=== PATIENT | female | born 1930 | race Caucasian/White ===

== ENCOUNTER → 2016-09-15 | Outpatient (CLI) | payer MEDICARE, OTHER ==
[2015-02-14 15:00] VITALS: BP 150/70
[~2016-09-15] MED LIST: ACET500T33 PO; ATOR20TA58 PO; CHOL100013 PO; ENOX40DI SQ; ESOM40CA PO; FERR-26 PO; FURO-68 PO; HYDR-2666 PO; HYDR25TA9 PO; LEVO50TA PO; LEVO75TA5 PO; LISI10TA2 PO; METO-269 PO; MULT1TAB52 PO; OXYC-323 PO; TRAM-29 PO; WARF1TAB PO; WARF2TAB PO; tylenol arthritis PO
[2016-09-15 14:20] LABS: BILIRUBIN,URINE NEGATIVE (NEG); GLUCOSE,URINE NEGATIVE (NEG); NITRITE,URINE NEGATIVE (NEG); PH,URINE 5.5; PROTEIN,URINE NEGATIVE (NEG-TRACE); UROBILINOGEN,URINE 0.2 mg/dL (0.2 mg/dL)
[2016-09-15 14:30] LABS: BACTERIA,URINE 0 /HPF (0-FEW); RBC,URINE 0 /HPF (0-2); SQUAMOUS EPITHELIAL CELL,UR FEW /LPF; WBC,URINE RARE /HPF (0-4)
[2016-09-15 14:41] LABS: BASO % 1 % (0-3); EOS % 1 % (0-3); HEMATOCRIT 37.8 % (36.0-47.0); HEMOGLOBIN 12.2 g/dL (12.0-15.5); LYMPH # 1.6 x10^3/uL (1.0-4.8); LYMPH % 26 % (24-48); MEAN CORPUSCULAR HEMOGLOBIN 31 pg (25-35); MEAN CORPUSCULAR HGB CONC 32 g/dL (31-37); MEAN CORPUSCULAR VOLUME 95 fL (79-100); MONO % 6 % (0-9); NEUT % 66 % (31-73); PLATELET COUNT 197 x10^3/uL (140-400); RED BLOOD COUNT 3.99 x10^6/uL (3.50-5.40); WHITE BLOOD COUNT 6.2 x10^3/uL (4.0-11.0)
[2016-09-15 14:51] LABS: ALBUMIN 4.1 g/dL (3.4-5.0); CALCIUM 11.3 mg/dL (8.5-10.1); CREATININE 1.2 mg/dL (0.6-1.0); GFR 42.8; POTASSIUM 3.6 mmol/L (3.5-5.1)
[2016-09-15 14:52] LABS: PROTHROMBIN TIME PATIENT 21.7 SEC (11.7-14.0)
--- NOTE | 2016-09-15 15:56 | RAD ---
Indication preop. Anticipated surgical removal of the patella. History of hypertension. PA and lateral views of the chest were obtained and are compared to an examination over 9 years ago. There are background changes compatible with emphysema. There is a bipolar cardiac pacing device. There is moderate enlargement of the cardiac silhouette. There is no congestive heart failure. A definite acute parenchymal infiltrate is not seen. There are occasional linear densities in the left midlung probably reflecting pleural-parenchymal scarring. Follow-up imaging, establishing stability, should be considered. IMPRESSION: Mild cardiomegaly. Linear densities in the left lung probably reflecting scar. Follow-up imaging, confirming stability, should be considered. No definite acute finding apparent in the chest
== END | disposition home or self-care (01) ==
LOC: SURGPAT 13:28
PROVIDERS: ATTEND Orthopaedic Surgery
DX: Z01.818 Encounter for other preprocedural examination (principal); I10 Essential (primary) hypertension
CPT/HCPCS: 36415; 71020; 80048; 81001; 82040; 85027; 85610; 85730; 87641

== ENCOUNTER 2016-09-21 06:03 | Inpatient (IN) | payer MEDICARE, OTHER ==
--- NOTE | 2016-09-20 11:26 | PDOC1 ---
History and Physical Date of Admission Date of Admission DATE: 09/21/16 Identification/Chief Complaint Chief Complaint right painful total knee Source Source: Chart review History of Present Illness History of Present Illness SIster Batool is an 86 year old female patient who had right total knee arthroplasty in January [address] Perez. She says her never has never been great since the surgery. She continues to have anterior knee pain and cannot walk as well as she would like. She states she has a lot of trouble getting up from the dinner table, due to pain, and has to have someone help her.She has tried bracing and physical therapy, without relief. X-rays show a loose patellar component. Past Medical History Cardiovascular: AFIB, HTN Past Surgical History Past Surgical History: Pacemaker, Total knee replacement (bilateral TKA), No pertinent history Family History Family History: No Significant Social History Smoke: No ALCOHOL: none Drugs: None Current Medications Current Medications Active Scripts Active Reported Levothyroxine Sodium 75 Mcg Tablet 1 Tab PO DAILY [tylenol arthritis] 1,300 Mg PO BID Coumadin (Warfarin Sodium) 1 Mg Tablet 2 Tab PO DAILY Multivitamins (Multivitamin) 1 Each Tablet 1 Tab PO DAILY Hydrochlorothiazide Tablet (Hydrochlorothiazide) 25 Mg Tablet 25 Mg PO DAILY Toprol Xl (Metoprolol Succinate) 50 Mg Tab.er.24h 50 Mg PO BID Lisinopril 10 Mg Tablet 1 Tab PO BID Vitamin D (Cholecalciferol (Vitamin D3)) 1,000 Unit Capsule 1,000 Unit PO DAILY07 Last dose given: 9:00 a.m. Next dose due: 05-24-14 9:00 a.m. Atorvastatin Calcium 20 Mg Tablet 20 Mg PO HS last dose given: 05-23-14 9:00 p.m. Next dose due: 05-24-14 9:00 p.m. Nexium Capsule (Esomeprazole Magnesium) 40 Mg Capsule.dr 40 Mg PO DAILY07 Last dose given: 7:30 a.m. Next dose due: 05-25-14 7:00 a.m. Allergies Allergies: Coded Allergies: tramadol (Verified Allergy, Severe, 02/11/15) hallucinations NSAIDS (Non-Steroidal Anti-Inflamma (Verified Adverse Reaction, Intermediate, GASTRIC IRRITATION, 02/11/15) Physical Exam General: Alert, Oriented X3, Cooperative, No acute distress HEENT: Atraumatic, EOMI Lungs: Normal air movement Heart: RRR Abdomen: Soft Extremities: No clubbing, No cyanosis, No edema, Normal pulses Skin: No rashes, No breakdown, No significant lesion Neuro: Normal speech, Sensation intact Psych/Mental Status: Mental status NL, Mood NL Vitals Vitals Vital Signs Date Time Temp Pulse Resp B/P Pulse Ox O2 Delivery O2 Flow Rate FiO2 09/15/16 14:48 97 75 18 98 97.0 Images Images Bone scan results reviewed. These show uptake in the patella of the right knee only. The femoral and tibial components of the right knee appears stable. VTE Prophylaxis Ordered VTE Prophylaxis Devices: Yes VTE Pharmacological Prophylaxi: Yes Assessment/Plan Assessment/Plan Painful total knee replacement. Dr. Perez and the patient discussed operative versus nonoperative management of her apparently loose patellar component and painful patellar bone. Dr. Perez recommended patellectomy. She got a second opinion which was the same. We talked a long time about the surgery, the expected time in the knee immobilizer which is typically six weeks, and the usual return to function which is often quite unexpectedly good. Dr. Perez explained that her strength would be affected slightly such as squatting, but her gait would probably improved from what it is currently, and would likely be less painful than it is now. We talked about the potential risks such as expected extensor lag, slight weakness, and possibilities of surgical complications such as scarring, blood clots, infection , or other potential surgical or anesthetic complications. She would like to proceed with right knee patellectomy. ANÍBAL GROSSMAN Sep 20, 2016 11:26
[2016-09-21] VITALS (8 sets, daily range): BP systolic 145–165; BP diastolic 75–99
[~2016-09-21] VITALS: Ht 167.6 cm; Wt 57.6 kg
[~2016-09-21 06:03] MED LIST changes: +ACETAMINOPHEN 500 MG TABLET PO PRN; +CEFAZOLIN 2GM PREMIX 50 ML IV PRN; +MORPHINE SULFATE 5 MG, ROPIVacaine 0.5% PF 60 ML, EPINEPHRINE 0.5 MG in IV NORMAL SALIN... INT ART ONE; +TRANEXAMIC ACID 1,000 MG in IV NORMAL SALINE 50ML 50 ML INJ ONE
[2016-09-21] MEDS ORDERED: BUPIVACAINE-EPI 0.25%-1:200000 50 ML VIAL. ONE (06:24)
[2016-09-21] MEDS ORDERED: LIDOCAINE 2% 100 MG/5 ML SYRINGE. ONE (06:45)
[2016-09-21] MEDS ORDERED: FENTANYL PF 100 MCG/2 ML VIAL. ONE (06:45)
[2016-09-21] MEDS ORDERED: PROPOFOL 0 ML IV ONE (06:45)
[2016-09-21] MEDS ORDERED: ONDA4TAB7 PO (06:55)
[2016-09-21] MEDS ORDERED: MORPHINE SULFATE 2 MG/ML DISP.SYRIN. IV PRN ×2 (07:00→11:30)
[2016-09-21] MEDS ORDERED: PROCHLORPERAZINE 10 MG/2 ML VIAL. IV PRN ×2 (07:00→11:30)
[2016-09-21] MEDS ORDERED: IV RINGERS,LACTATED 1000ML 1,000 ML IV SCH (07:00)
[2016-09-21] MEDS ORDERED: FENTANYL PF 100 MCG/2 ML VIAL. IV PRN ×4 (07:00→11:30)
[2016-09-21] MEDS ORDERED: HYDROMORPHONE 2 MG/ML VIAL. IV PRN (07:00)
[2016-09-21] MEDS ORDERED: ONDANSETRON PF 4 MG/2 ML VIAL. IV PRN (07:00)
[2016-09-21] MEDS ORDERED: LIDOCAINE 1% 1 ML SYRINGE. ID PRN (07:00)
[2016-09-21 07:44] LABS: INR 1.5 (0.8-1.1); PROTHROMBIN TIME PATIENT 17.3 SEC (11.7-14.0)
[2016-09-21] MEDS ORDERED: TRANEXAMIC ACID 1,000 MG in IV NORMAL SALINE 50ML 50 ML INJ ONE (08:00)
[2016-09-21] MEDS ORDERED: MIDAZOLAM HCL/PF 2 MG/2 ML VIAL. ONE (10:01)
[2016-09-21] MEDS ORDERED: ONDANSETRON PF 4 MG/2 ML VIAL. ONE (10:42)
[2016-09-21] MEDS ORDERED: OXYCODONE/APAP 7.5/325 TABLET. PO PRN (11:30)
[2016-09-21] MEDS ORDERED: DEXTROSE 50% 25 GM / 50ML DISP.SYRIN. IV PRN (11:30)
[2016-09-21] MEDS ORDERED: OXYCODONE/APAP 5/325 TABLET. PO PRN (11:30)
[2016-09-21] MEDS ORDERED: 0.9 % SODIUM CHLORIDE 10 ML DISP.SYRIN. IV PRN (11:30)
[2016-09-21] MEDS ORDERED: ZOLPIDEM 5 MG TABLET. PO PRN (11:30)
[2016-09-21] MEDS ORDERED: PROCHLORPERAZINE 5 MG TABLET. PO PRN (11:30)
[2016-09-21] MEDS ORDERED: METOCLOPRAMIDE HCL 10 MG/2 ML VIAL. IV PRN (11:30)
[2016-09-21] MEDS ORDERED: MORPHINE SULFATE 10 MG/ML VIAL. IV PRN (11:30)
[2016-09-21] MEDS ORDERED: CALCIUM CARBONATE 500 MG TAB.CHEW PO PRN (11:30)
[2016-09-21] MEDS ORDERED: DIPHENHYDRAMINE 50 MG/ML VIAL. IV PRN (11:30)
[2016-09-21] MEDS ORDERED: MORPHINE SULFATE 4 MG/ML DISP.SYRIN. IV PRN ×2 (11:30)
[2016-09-21] MEDS ORDERED: ACETAMINOPHEN 325 MG TABLET. PO PRN (11:30)
[2016-09-21] MEDS ORDERED: HYDROCODONE/APAP 10/325 TABLET. PO PRN (11:30)
--- NOTE | 2016-09-21 11:47 | PDOC4 ---
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 She has a painful patella, with evidence of patella fracture radiographically. Bone scan shows markedly increased uptake at the patella. She probably has avascular necrosis of the patella in addition to the fracture. I recommended patellectomy, to help relieve her painful symptoms. See office notes. We discussed the risks benefits and alternatives. All of her questions about surgery were answered and she desired to proceed. Procedure in Detail: The patient was identified in the preoperative holding area. The correct right lower extremity was marked by me. The patient was taken to the operating room where general anesthesia was used. The patient was positioned supine on the operating table. Preoperative antibiotics were given intravenously. A timeout procedure was performed. A tourniquet was placed on the upper thigh. The skin was prepared in sterile fashion using ChloraPrep. Sterile drapes were applied. An impervious stockinette was used over the lower limb. An Ioban drape was used such that the skin was entirely covered. The limb was elevated to exsanguinate it and the tourniquet was inflated to 350 mmHg. Midline skin incision was used, incorporating her old incision. Sharp dissection was used and Bovie electrocautery was used for hemostasis. The peritenon and patella were reflected. The patella was identified and appears sclerotic consistent with avascular necrosis. A patellectomy was performed with enucleation of the patellar bone, carefully, preserving the soft tissues. This was done sharply with a scalpel so as to avoid thermal damage to the surrounding soft tissues. Copious irrigation was used of the knee joint. Transparent pale yellow synovial benign appearing fluid was noted in the knee joint. The prosthetic components of the knee joint otherwise appears stable. Soft tissue repair was now performed. The patellar tendon and quadriceps tendon were reapproximated using #5 FiberWire running locking Krakw suture pattern. # 2 FiberWire in a [id number] pattern was used to repair the transverse capsulotomy. The remaining peritenon was repaired with #1 PDS [id number] sutures. The knee was taken through a range of motion and passively flexed to 90 . The repair remained secure. Copious irrigation was used. The tourniquet was released. Bovie electrocautery was used for hemostasis. Periarticular injection was used with ropivacaine, epinephrine, and morphine. I had Lesley my licensed loan officer assistant now close the subcutaneous tissues with 2-0 Vicryl. She opposed the skin edges with ange. Sterile dressings were applied. Needle and sponge counts were correct. A knee brace was applied with the knee in extension. There were no apparent complications. HOMAR PEREZ MD Sep 21, 2016 11:47
--- NOTE | 2016-09-21 12:06 | RAD ---
Right knee radiographs History: Postoperative. Comparison: 02/11/2015. Findings: AP and lateral views of the right knee. Right total knee arthroplasty is again seen. Joint fluid is present. Presence of soft tissue gas and surgical skin ange are compatible with recent postoperative status. Arterial calcifications are seen. Impression: Postoperative changes. Right total knee arthroplasty.
[2016-09-21] MEDS: SENNOSIDES/DOCUSATE 8.6/50MG TABLET. PO SCH ×2 (14:00→17:08)
[2016-09-21] MEDS: IV DEXTROSE 5 %-0.45 % NACL 1,000 ML IV SCH (15:12)
[2016-09-21] MEDS: CEFAZOLIN SODIUM 1 GM in IV NORMAL SALINE 50ML 50 ML IV SCH (17:08)
[2016-09-21] MEDS: WARFARIN 2 MG TABLET. PO SCH ×2 (17:08→21:08)
[2016-09-21] MEDS: PANTOPRAZOLE 40 MG TABLET.DR. PO SCH (17:08)
[2016-09-21] MEDS: HYDROCHLOROTHIAZIDE 25 MG TABLET PO SCH (17:09)
[2016-09-21] MEDS: LISINOPRIL 10 MG TABLET PO SCH (21:08)
[2016-09-21] MEDS: ATORVASTATIN CALCIUM 20 MG TABLET PO SCH (21:08)
[2016-09-22 03:30] VITALS: BP 120/65
[2016-09-22] MEDS: CEFAZOLIN SODIUM 1 GM in IV NORMAL SALINE 50ML 50 ML IV SCH (04:00)
[2016-09-22] MEDS ORDERED: MAGNESIUM HYDROXIDE 2,400 MG/30 ML ORAL.SUSP. PO PRN (06:00)
[2016-09-22 06:23] VITALS: BP 147/70
[2016-09-22] MEDS: LEVOTHYROXINE 75 MCG TABLET PO SCH (06:43)
[2016-09-22] MEDS: IV DEXTROSE 5 %-0.45 % NACL 1,000 ML IV SCH ×2 (08:50→09:03)
[2016-09-22] MEDS: MULTIVITAMIN with MINERAL TABLET. PO SCH (08:53)
[2016-09-22] MEDS: SENNOSIDES/DOCUSATE 8.6/50MG TABLET. PO SCH (08:54)
[2016-09-22] MEDS: LISINOPRIL 10 MG TABLET PO SCH ×2 (08:54→20:53)
[2016-09-22] MEDS: CHOLECALCIFEROL (VITAMIN D3) 1,000 UNIT TABLET PO SCH (08:54)
[2016-09-22] MEDS: HYDROCODONE/APAP 7.5/325MG TABLET. PO PRN ×3 (08:58→20:50)
[2016-09-22] MEDS: PANTOPRAZOLE 40 MG TABLET.DR. PO SCH (09:01)
[2016-09-22] MEDS: HYDROCHLOROTHIAZIDE 25 MG TABLET PO SCH (09:01)
--- NOTE | 2016-09-22 09:55 | PDOC ---
PROGRESS NOTES Subjective Subjective Doing well. Objective Vital Signs Vital Signs Date Time Temp Pulse Resp B/P Pulse Ox O2 Delivery O2 Flow Rate FiO2 09/22/16 08:58 18 Room Air 09/22/16 08:54 76 147/70 09/22/16 06:23 98.2 99 98.2 09/21/16 14:30 2.0 Physical Exam Laying in bed with knee brace intact. Postop dressing intact with spotty drainage. Calf soft and nontender, with negative Rachel's sign. Good plantarflexion and dorsiflexion with no evidence of neurovascular injury. Labs Laboratory Tests Test 09/21/16 07:00 Prothrombin Time 17.3SEC (11.7-14.0) Prothromb Time International Ratio 1.5 (0.8-1.1) Assessment Assessment POD #1 right knee patellectomy Problems: Plan Plan of Care Continue ASA 325mg BID for DVT ppx. Continue PT/OT. She may remove the brace while in bed and work on AROM as tolerated. No PROM. WBAT with walker with brace intact, locked in extension. Plan for discharge tomorrow with therapy at [facility]. ANÍBAL GROSSMAN Sep 22, 2016 09:55
[2016-09-22 10:08] LABS: INR 1.7 (0.8-1.1)
[2016-09-22] MEDS: METOPROLOL SUCC 24HR ER 50 MG TAB.ER.24H. PO SCH ×2 (13:28→20:54)
[2016-09-22 13:36] VITALS: BP 150/70
[2016-09-22] MEDS ORDERED: BISACODYL 10 MG SUPP.RECT. PR PRN (16:00)
[2016-09-22] MEDS: WARFARIN 2 MG TABLET. PO SCH (17:54)
[2016-09-22 18:02] VITALS: BP 119/50
[2016-09-22] MEDS: ATORVASTATIN CALCIUM 20 MG TABLET PO SCH (20:50)
[2016-09-23 04:12] LABS: HEMATOCRIT 27.1 % (36.0-47.0); HEMOGLOBIN 8.8 g/dL (12.0-15.5)
[2016-09-23 04:15] LABS: PROTHROMBIN TIME PATIENT 21.7 SEC (11.7-14.0)
[2016-09-23 05:51] VITALS: BP 126/59
[2016-09-23] MEDS: LEVOTHYROXINE 75 MCG TABLET PO SCH (07:01)
[2016-09-23] MEDS: HYDROCODONE/APAP 7.5/325MG TABLET. PO PRN (07:55)
[2016-09-23] MEDS: SENNOSIDES/DOCUSATE 8.6/50MG TABLET. PO SCH (07:55)
[2016-09-23] MEDS: PANTOPRAZOLE 40 MG TABLET.DR. PO SCH (07:55)
[2016-09-23] MEDS: CHOLECALCIFEROL (VITAMIN D3) 1,000 UNIT TABLET PO SCH (07:56)
[2016-09-23] MEDS: MULTIVITAMIN with MINERAL TABLET. PO SCH (07:57)
[2016-09-23] MEDS: METOPROLOL SUCC 24HR ER 50 MG TAB.ER.24H. PO SCH (11:31)
[2016-09-23] MEDS: HYDROCHLOROTHIAZIDE 25 MG TABLET PO SCH (11:31)
[2016-09-23 11:34] VITALS: BP 140/63
[2016-09-23] MEDS: LISINOPRIL 10 MG TABLET PO SCH (11:34)
--- NOTE | 2016-09-23 14:35 | PDOC ---
PROGRESS NOTES Subjective Subjective Doing well. Objective Vital Signs Vital Signs Date Time Temp Pulse Resp B/P Pulse Ox O2 Delivery O2 Flow Rate FiO2 09/23/16 11:34 97.8 77 18 140/63 100 Room Air 97.8 09/21/16 14:30 2.0 Physical Exam Lying in recliner, napping. Right knee brace intact. Calf soft and nontender, with a negative Rachel's sign. Good dorsiflexion and plantarflexion with no sign of neurovascular injury. Light touch sensation normal. Peripheral pulses intact. Labs Laboratory Tests Test 09/22/16 09:00 09/23/16 03:50 Prothrombin Time 19.0SEC (11.7-14.0) 21.7SEC (11.7-14.0) Prothromb Time International Ratio 1.7 (0.8-1.1) 2.0 (0.8-1.1) Hemoglobin 8.8g/dL (12.0-15.5) Hematocrit 27.1% (36.0-47.0) Mean Corpuscular Hemoglobin Concent 33g/dL (31-37) Laboratory Tests Test 09/23/16 03:50 Hemoglobin 8.8g/dL (12.0-15.5) Hematocrit 27.1% (36.0-47.0) Mean Corpuscular Hemoglobin Concent 33g/dL (31-37) Prothrombin Time 21.7SEC (11.7-14.0) Prothromb Time International Ratio 2.0 (0.8-1.1) Assessment Assessment POD #2 right knee patellectomy Problems: Plan Plan of Care Continue PT and DVT ppx with Coumadin. Plan for discharge this afternoon to the [facility]. She may remove the brace while in bed to work on active range of motion, as tolerated. WBAT with walker with brace in place. Followup with [facility] in 10-14 days. ANÍBAL GROSSMAN Sep 23, 2016 14:35
--- NOTE | 2016-09-23 14:38 | PDOC3 ---
Discharge Summary Visit Information Date of Admission: Sep 21, 2016 Date of Discharge: Sep 23, 2016 Admitting Diagnosis: right camacho-prosthetic patella fracture Final Diagnosis Problems Medical Problems: (1) Camacho-prosthetic patellar fracture Status: Acute Brief Hospital Course Allergies Allergies Coded Allergies Type Severity Reaction Last Updated Verified NSAIDS (Non-Steroidal Anti-Inflamma Adverse Reaction Intermediate GASTRIC IRRITATION 09/21/16 Yes tramadol Adverse Reaction Intermediate hallucinations 09/21/16 Yes Vital Signs Vital Signs Date Time Temp Pulse Resp B/P Pulse Ox O2 Delivery O2 Flow Rate FiO2 09/23/16 11:34 97.8 77 18 140/63 100 Room Air 97.8 Lab Results Laboratory Tests Test 09/22/16 09:00 09/23/16 03:50 Prothrombin Time 19.0SEC (11.7-14.0) 21.7SEC (11.7-14.0) Prothromb Time International Ratio 1.7 (0.8-1.1) 2.0 (0.8-1.1) Hemoglobin 8.8g/dL (12.0-15.5) Hematocrit 27.1% (36.0-47.0) Mean Corpuscular Hemoglobin Concent 33g/dL (31-37) Laboratory Tests Test 09/23/16 03:50 Hemoglobin 8.8g/dL (12.0-15.5) Hematocrit 27.1% (36.0-47.0) Mean Corpuscular Hemoglobin Concent 33g/dL (31-37) Prothrombin Time 21.7SEC (11.7-14.0) Prothromb Time International Ratio 2.0 (0.8-1.1) Brief Hospital Course 86 year old female who presented with right periprosthetic patella fracture, for elective right patellectomy. The patient underwent right knee patellectomy under epidural anesthesia the day of admission. Perioperative antibiotics and DVT prophylaxis were used. Postoperatively physical therapy and case management were consulted. The patient progressed and is stable for discharge. Discharge Information Condition at Discharge: Stable Follow Up: Weeks (2) Disposition/Orders: D/C to Another Facility ([facility]) Scheduled ([tylenol arthritis]) 1,300 MG PO BID (Reported) Atorvastatin Calcium (Atorvastatin Calcium) 20 MG PO HS (Reported) Cholecalciferol (Vitamin D3) (Vitamin D) 1,000 UNIT PO DAILY07 (Reported) Esomeprazole Magnesium (Nexium Capsule) 40 MG PO DAILY07 (Reported) Hydrochlorothiazide (Hydrochlorothiazide Tablet ) 25 MG PO DAILY (Reported) Levothyroxine Sodium (Levothyroxine Sodium) 1 TAB PO DAILY (Reported) Lisinopril (Lisinopril) 1 TAB PO BID (Reported) Metoprolol Succinate (Toprol Xl) 50 MG PO BID (Reported) Multivitamin (Multivitamins) 1 TAB PO DAILY (Reported) Warfarin Sodium (Coumadin) 2 TAB PO DAILY (Reported) Scheduled PRN Ondansetron Hcl (Zofran) 4 MG PO BID PRN PRN NAUSEA/VOMITING (Reported) Patient Instructions Patient Instructions Patient Instructions Continue to WBAT with walker with brace intact. F/U with [facility] in 10-14 days. Call for appointment. Continue physical therapy. You may remove knee brace while in bed and work on active range of motion, as tolerated. No passive range of motion. Continue DVT prophylaxis. ANÍBAL GROSSMAN Sep 23, 2016 14:38
[2016-09-23] MEDS: WARFARIN 2 MG TABLET. PO SCH (15:18)
== END 2016-09-23 17:00 | DRG 488 ==
LOC: OPSVCIP 06:03 → 4 SOUTHEST 13:00
PROVIDERS: ADMIT Orthopaedic Surgery; ATTEND Orthopaedic Surgery
PROC: 0QTD0ZZ Resection of Right Patella, Open Approach (ICD-10-PCS; principal; 2016-09-21 10:00)
DX: M97.11XA Periprosthetic fracture around internal prosthetic right knee joint, initial encounter (principal); M87.9 Osteonecrosis, unspecified; D62 Acute posthemorrhagic anemia; I10 Essential (primary) hypertension; I48.91 Unspecified atrial fibrillation; Z96.653 Presence of artificial knee joint, bilateral; Z88.8 Allergy status to other drugs, medicaments and biological substances
CPT/HCPCS: 36415; 73560; 85014; 85018; 85610; 86850; 86900; 86901; J0171; J0690; J0780; J2250; J2270; J2405; J2704; J2765; J2795; J3010; Q0164; 97110; 97116; 97150; 97530; 97535

== ENCOUNTER → 2021-09-18 | Outpatient (CLI) | payer MEDICARE, OTHER ==
[~2021-09-18] MED LIST changes: -ACETAMINOPHEN 500 MG TABLET PO PRN; -CEFAZOLIN 2GM PREMIX 50 ML IV PRN; -FERR-26 PO; +FERR325T14 PO; +HYDR-2145 PO; -HYDR-2666 PO; +HYDR-2761 PO; -HYDR25TA9 PO; +LISI10TA16 PO; -LISI10TA2 PO; -MORPHINE SULFATE 5 MG, ROPIVacaine 0.5% PF 60 ML, EPINEPHRINE 0.5 MG in IV NORMAL SALIN... INT ART ONE; +MULT-445 PO; -MULT1TAB52 PO; +ONDA4TAB7 PO; -OXYC-323 PO; +OXYC1TAB15 PO; -TRAM-29 PO; +TRAM-48 PO; -TRANEXAMIC ACID 1,000 MG in IV NORMAL SALINE 50ML 50 ML INJ ONE; -WARF1TAB PO; +WARF1TAB2 PO
== END ==
LOC: LAB 16:00
PROVIDERS: ATTEND Podiatrist
DX: L97.309 Non-pressure chronic ulcer of unspecified ankle with unspecified severity (principal)
CPT/HCPCS: 87075

== ENCOUNTER → 2021-10-29 | Outpatient (CLI) | payer MEDICARE, OTHER ==
[2021-10-29 11:54] LABS: BASO % 0 % (0-3); EOS # 0.1 x10^3/uL (0.0-0.7); EOS % 2 % (0-3); HEMATOCRIT 31.6 % (36.0-47.0); HEMOGLOBIN 10.6 g/dL (12.0-15.5); LYMPH # 0.9 x10^3/uL (1.0-4.8); LYMPH % 18 % (24-48); MEAN CORPUSCULAR HEMOGLOBIN 33 pg (25-35); MEAN CORPUSCULAR HGB CONC 33 g/dL (31-37); MEAN CORPUSCULAR VOLUME 97 fL (79-100); MONO # 0.3 x10^3/uL (0.0-1.1); MONO % 6 % (0-9); NEUT # 3.8 x10^3/uL (1.8-7.7); NEUT % 74 % (31-73); PLATELET COUNT 183 x10^3/uL (140-400); RED BLOOD COUNT 3.24 x10^6/uL (3.50-5.40); RED CELL DISTRIBUTION WIDTH 13.6 % (11.5-14.5); WHITE BLOOD COUNT 5.1 x10^3/uL (4.0-11.0)
[2021-10-30 14:15] LABS: IMMUNOGLOBULIN A 107 mg/dL (64-422); IMMUNOGLOBULIN G 618 mg/dL (586-1602); IMMUNOGLOBULIN M 69 mg/dL (26-217)
[2021-10-30 15:20] LABS: ALBUM 3.9 g/dL (2.9-4.4); ALPHA 1 0.3 g/dL (0.0-0.4); ALPHA 2 0.7 g/dL (0.4-1.0); BETA 0.8 g/dL (0.7-1.3); GAMMA 0.6 g/dL (0.4-1.8); PROTEIN TOTAL 6.3 g/dL (6.0-8.5); SPEP AG RATIO 1.6 (0.7-1.7)
[2021-10-30 16:16] LABS: KAPPA FREE 21.4 mg/L (3.3-19.4); KAPPA LAMBDA RATIO 1.02 (0.26-1.65); LAMBDA FREE 20.9 mg/L (5.7-26.3)
== END ==
LOC: ONCLAB 11:29
PROVIDERS: ATTEND Internal Medicine Hematology & Oncology
DX: D61.818 Other pancytopenia (principal); D50.0 Iron deficiency anemia secondary to blood loss (chronic)
CPT/HCPCS: 36415; 82525; 82607; 82668; 82728; 82746; 82784; 83520; 83540; 83550; 83921; 84165; 85025; 85045; 86334